=== PATIENT | male | born 1965 | race Caucasian/White ===

== ENCOUNTER → 2017-12-12 | Outpatient (CLI) | payer OTHER ==
[~2017-12-12] MED LIST: AMITRIPTYLINE; DICLOFENAC SODI75 MG PO; FLEXERIL PO; MEDROLDOSEPACK PO; NEURONTIN 300M300 M2 PO
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
== END ==
LOC: M.PC 02:06
DX: M47.22 Other spondylosis with radiculopathy, cervical region (principal); M50.123 Cervical disc disorder at C6-C7 level with radiculopathy; M25.512 Pain in left shoulder

== ENCOUNTER → 2018-01-02 | Outpatient (CLI) | payer OTHER ==
--- NOTE | 2018-01-31 13:42 | PAINCON ---
[address] [address] PAIN MANAGEMENT CONSULTATION Name: JANA CORNELL Room: [facility] EMA Mosher#: [id number] Admission: 01/02/18 Attend Phys: Ryan Ding MD Discharge: Date of : 63 Report #: [id number] THIS REPORT FOR: //name// CC: Ryan Hirsch DATE OF SERVICE: 01/02/2018 FOLLOWUP COMPLAINT: Pain in the neck and shoulder has returned. FOLLOWUP HISTORY: The patient is a 52-year-old gentleman who has been seen in the Pain Clinic because of cervical radiculopathy. He has been experiencing pain in his neck with pain radiating down into his left arm. He states that he has had some trauma to his neck over his lifetime. He has fallen on his head a number of times when he was younger. Overall, he is experiencing some pain and discomfort, which radiating down into his arm and to his right shoulder and into his hand. He notes some pain in the left shoulder and numbness down into his ring and index finger. He has not had surgery on his neck in the past. He does feel that there are some arthritic changes. He complains about a grinding sensation when he rotates his head back and forth. He has returned to the Pain Clinic for a cervical epidural steroid injection to improve the pain and discomfort, which he is experiencing. Continues to have a perception that his arm is going to sleep, that involves the left side. He continues to have cramping and pulling. He rates his pain today as a 3/10. He still finds that gabapentin and amitriptyline are helpful. ALLERGIES: No known drug allergies. CURRENT MEDICATIONS: Gabapentin 300 mg 1 p.o. t.i.d. for greater than 5 years, diclofenac 2 tablets daily for greater than 5 years, Elavil dose of which he cannot recall, he has taken this for about 3 years PAIN CLINIC ASSESSMENT: 1. 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 2. Height 6 feet, weight 185 pounds, BMI is 24. 3. Vital Signs: Blood pressure 132/74, heart rate is 58, respiratory rate is 16, room air saturation 97%, temperature 98.8. 4. Pain intensity 3-10. 5. Fall risk. The patient has not fallen in the last 3 months. 6. Blood thinner. The patient is not on a blood thinner. 7. History of hypertension. The patient is not being treated for hypertension. 8. Opioid therapy greater than 6 weeks. The patient is not on an opioid therapy. 9. Risk assessment tool. 10. Functional assessment tool. 11. Recreational drug use. The [place] [address] PAIN MANAGEMENT CONSULTATION Name: JANA CORNELL Room: [facility]#: [id number] Admission: 01/02/18 Attend Phys: Ryan Ding MD Discharge: Date of : 63 Report #: [id number] 12. Tobacco: The patient smokes one-half pack of cigarettes per day, has smoked for 30 years. 13. Alcohol. The patient drinks an alcoholic beverage 2-3 times per week. PHYSICAL EXAMINATION: GENERAL: The patient is a well-developed, well-nourished white male. He appears his stated age. He is alert and oriented x 3. Speech is fluent. HEENT: Normocephalic, atraumatic. Extraocular eye muscles intact. Mucous membranes are moist. Hearing is within normal limits. HEART: S1, S2 without murmur. LUNGS: Clear to auscultation without rhonchi or rales. ABDOMEN: Nontender. MUSCULOSKELETAL: Without significant scoliosis, kyphosis or lordosis. Upper extremity muscle strength is judged to be 5/5 for the major muscle groups of the upper extremity. Deep tendon reflexes are +1 for the biceps bilaterally. Absent triceps and brachioradialis. Decreased sensation to pinprick and light touch in the area of the left arm involving the ring and little finger. The patient has pain and discomfort radiating down to the left and right scapular areas. Some numbness and tingling in the left and feels as though his hand is going to sleep. Lower extremity muscle strength 5/5 for the major muscle groups. The patient has a wnfym-hrr-cxud amputation on his left side. He has a prosthetic device in place. He has the perception of phantom pain in the lower extremity. IMPRESSION: Cervical radiculopathy involving the right shoulder, right scapular area, left shoulder, left scapular area with pain radiating down into the left arm involving the left hand, ring and little finger with sensory changes. RECOMMENDATIONS: We discussed treatment options with the patient. Risks and benefits of a cervical epidural steroid injection were discussed. They include but are not limited to infection, increased muscle soreness, headache, worsening of pain, spinal headache, paralysis. The patient elects to proceed. PROCEDURE NOTE: The patient was placed in the prone position. He was then positioned correctly on the examination table. Fluoroscopy while the patient was in the prone position was used to identify the C7/T1 interspace. This area had been sterilely prepped with Betadine and infiltrated with 0.25% bupivacaine. A 17-gauge Tuohy with loss of resistance technique was used to gain access to the epidural space. There was no CSF, heme or paresthesia. Total of 120 mg triamcinolone was injected. The patient tolerated the procedure well. There were no complications. His pain decreased to zero at the time of discharge. A Band-Aid was placed in the area of the puncture site. There was no bleeding. The patient felt that the Medrol Dosepak, which was provided [place] [address] PAIN MANAGEMENT CONSULTATION Name: JANA CORNELL Room: [facility]#: [id number] Admission: 01/02/18 Attend Phys: Ryan Ding MD Discharge: Date of : 63 Report #: [id number] visit did help with the perception of phantom pain in his leg. He will follow up in the future as needed. <ELECTRONICALLY SIGNED> By: Ryan Ding MD 01/31/18 1342 1353 0408N. Mahad Ding MD /nt
== END | disposition home or self-care (01) ==
LOC: M.PC 02:18
DX: M54.12 Radiculopathy, cervical region (principal); G89.29 Other chronic pain; F17.210 Nicotine dependence, cigarettes, uncomplicated

== ENCOUNTER → 2018-01-30 | Outpatient (CLI) | payer OTHER ==
--- NOTE | 2018-01-31 14:14 | PAINCON ---
[address] [address] PAIN MANAGEMENT CONSULTATION Name: JANA CORNELL Room: [facility] EMA Mosher#: [id number] Admission: 01/30/18 Attend Phys: Ryan Ding MD Discharge: Date of : 63 Report #: [id number] THIS REPORT FOR: //name// CC: Ryan Hirsch DATE OF SERVICE: 01/30/2018 FOLLOWUP COMPLAINT: Pain improved after the last injection, but "I am still having some numbness and tingling down into my fingers. If I hold my hand up I note continued weakness in my right hand." FOLLOWUP HISTORY: The patient is a 52-year-old gentleman who has been seen in the pain clinic because of cervical radiculopathy. He underwent a cervical epidural steroid injection at the last visit. He has noted some pain and discomfort, which has improved. Still has pain and numbness in his hands. He has stopped taking all of his medications over the past 2 weeks. He would like to know what his baseline level of comfort is. Rates his pain as a 2/10. Overall, the most problematic thing is that of weakness and numbness involving both hands down into his fingers. The patient states that if he drinks a glass of water. He tilts his head back with the glass of water. His hands start to get weak and he almost loses control of glass. He has not had surgery on his neck. Did note improvement after the epidural steroid injection at the last dose. He has had no untoward side effects from the medications. He has stopped taking amitriptyline. It was felt that he had some difficulty waking and being clear minded the following day. He has not taken the gabapentin, Voltaren or Neurontin. Continues to have a perception of his arm is going to sleep. It involves the left side. Does continue to have some cramping and pulling sensation. Rates his pain as a 2 today, down from 3 at the last visit. ALLERGIES: No known drug allergies. CURRENT MEDICATIONS: The patient has not taken his medication for the last 2 weeks, but has script for gabapentin 300 mg one p.o. t.i.d., diclofenac 2 tablets 75 mg daily, Elavil, stopped secondary to difficulty with being awake the next day. PAIN CLINIC ASSESSMENT: 1. 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 Height 6 feet, weight 176 pounds, BMI is 28.3. 2. Vital signs: Blood pressure 131/62, heart rate 49, respiratory rate 16, room air saturation is 99%, temperature 98.1. 3. Pain intensity 210. 4. Fall risk. The patient has not fallen in the last 3 months -- he does have a prosthetic left leg. 5. Blood thinner. The patient is on [place] [address] PAIN MANAGEMENT CONSULTATION Name: JANA CORNELL Room: [facility]#: [id number] Admission: 01/30/18 Attend Phys: Ryan Ding MD Discharge: Date of : 63 Report #: [id number] 6. History of hypertension. The patient is not being treated for hypertension. 7. Opioid therapy greater than 6-week. The patient is not on opioid therapy. 8. Risk assessment tool, low for opioid use. 9. Functional assessment tool. 10. Recreational drug use. The patient denies use of recreational drugs. 11. Tobacco. The patient smokes one-half pack of cigarettes per day, has smoked for 30 years. 12. Alcohol. The patient drinks an alcoholic beverage 2-3 times per week. PHYSICAL EXAMINATION: GENERAL: The patient is a well-developed, well-nourished white male. He appears his stated age. He is alert and oriented x 3. Speech is fluent. HEAD, EYES, EARS, NOSE, AND THROAT: Normocephalic, atraumatic. Extraocular eye muscles intact. Mucous membranes are moist. Hearing is within normal limits. HEART: S1, S2, regular, without murmurs. LUNGS: Clear to auscultation without rhonchi or rales. ABDOMEN: Nontender. MUSCULOSKELETAL: Without significant scoliosis, kyphosis or lordosis. Upper extremity muscle strength is judged to be 5/5 for the major muscle groups. Deep tendon reflexes +1 for the biceps, absent brachioradialis, decreased sensation to pinprick and light touch in the area of the left arm involving his ring and little finger. The patient notes some tingling and discomfort radiating down into his right arm and hand as well. Feels as though his hand is going to sleep on the left side. Lower extremity muscle strength 5/5 for the major muscle groups. The patient has a [id number]-ycg-[id number] amputation on the left side. States that he is continue to monitor this. Given that the weather is anika hot with a hope that he does not develop a rash or infection in the stump area. He continues to wear his prosthetic device. Has some perception of phantom pain in the lower extremity, which has improved since use of the Medrol Dosepak. IMPRESSION: Cervical radiculopathy involving the right shoulder, right scapular area, left shoulder, left scapular area with pain radiating down into his left hand with numbness and tingling in his left ring and little finger with sensory changes. RECOMMENDATIONS: We discussed treatment options with the patient. He has gleaned benefits from the epidural steroid injection. He has returned today and would like to proceed with another epidural steroid injection in the future after his insurance company provides acknowledgement. The patient is showing improvement. Continues to have sensory changes in the left and right upper extremity. I think that an additional cervical epidural steroid injection would be beneficial. The patient will return to the pain clinic at which time he will then undergo another [place] [address] PAIN MANAGEMENT CONSULTATION Name: JANA CORNELL Room: [facility]#: [id number] Admission: 01/30/18 Attend Phys: Ryan Ding MD Discharge: Date of : 63 Report #: [id number] We would like to thank you for letting us to participate in his care. We hope he continues to improve. <ELECTRONICALLY SIGNED> By: Ryan Ding MD 01/31/18 1414 1341 1512N. Mahad Ding MD /[facility]
== END ==
LOC: M.PC 00:36
DX: M54.12 Radiculopathy, cervical region (principal); M25.511 Pain in right shoulder; M25.512 Pain in left shoulder; R20.2 Paresthesia of skin; R20.0 Anesthesia of skin

== ENCOUNTER → 2018-02-06 | Outpatient (CLI) | payer OTHER ==
--- NOTE | 2018-02-15 15:18 | PAINCON ---
[address] [address] PAIN MANAGEMENT CONSULTATION Name: JANA CORNELL Room: [facility] EMA Mosher#: [id number] Admission: 02/06/18 Attend Phys: Ryan Ding MD Discharge: Date of : 63 Report #: [id number] THIS REPORT FOR: //name// CC: Ryan Hirsch DATE OF SERVICE: 02/06/2018 FOLLOWUP COMPLAINT: Here for an cervical epidural steroid injection. FOLLOWUP HISTORY: The patient is a 52-year-old gentleman who has been seen in the Pain Clinic because of cervical radiculopathy. He has undergone epidural steroid injections and gleaned benefits from these. He has some pain and discomfort in his neck with radiation down into his shoulder. He has had some problems with this for years. He underwent an epidural steroid injection in the past. Gleaned greater than 50% improvement, but he continues to have some numbness down into his arm and left hand. Certain positions can exacerbate his discomfort. He rates his pain as a 2-3 on most occasions. He is not taking any medications at this juncture. He feels that another injection would be beneficial and would like to proceed. He has had no complication from the last treatment. He was taking gabapentin and diclofenac, but he elected to stop these medications to see whether or not they provide any efficacy. ALLERGIES: No known drug allergies. CURRENT MEDICATIONS/MEDICATIONS USED, BUT DISCONTINUED: Gabapentin 300 mg 1 p.o. t.i.d., diclofenac 2 tablets 75 mg daily, and Elavil. The patient stopped using this medication secondary it caused him some difficulty in waking the following day. PAIN CLINIC ASSESSMENT: 1. 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 2. Height 6 feet, weight 178 pounds, BMI 24. 3. VITAL SIGNS: Blood pressure 125/82, heart rate 51, respiratory rate 16, room air saturation 97%, temperature 98.2. 4. Pain intensity 2-10/28. 5. Fall risk. The patient has not fallen in the last 3 months. 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 6. Blood thinner. The patient is not on a blood thinning medication. 7. History of hypertension. The patient is not being treated for hypertension. 8. Opioid therapy greater than 6 weeks. The patient is not on opioid therapy regimen. 9. Risk assessment tool, low for opioid use. 10. Functional assessment tool. 11. Recreational drug use. The patient denies use of recreational drugs. 12. Tobacco: The patient smokes 1/2 pack of cigarettes per day, [place] [address] PAIN MANAGEMENT CONSULTATION Name: JANA CORNELL Room: [facility]#: [id number] Admission: 02/06/18 Attend Phys: Ryan Ding MD Discharge: Date of : 63 Report #: [id number] 29 years. 13. Alcohol. The patient drinks an alcoholic beverage 2-3 times per week. PHYSICAL EXAMINATION: GENERAL: The patient is a well-developed white male. He appears his stated age. He is alert and oriented x 3. Speech is fluent. HEENT: Normocephalic, atraumatic. Extraocular eye muscles intact. Sclerae nonicteric. Hearing within normal limits. NECK: Without adenopathy or JVD. No bruits heard. CARDIOVASCULAR: S1, S2 regular, without any murmurs. LUNGS: Clear to auscultation without rhonchi or rales. ABDOMEN: Nontender. MUSCULOSKELETAL: Without significant scoliosis, kyphosis or lordosis. Upper extremity muscle strength is judged to be 5/5 for the major muscle groups. The patient notes some worsening of pain and discomfort while lying prone on the bed. It makes it difficult for him to keep his arms in position because of the significant worsening of pain in that position. He notes some decreased sensation to pinprick in his ring and little finger. Note some tingling and discomfort in the right arm as well. Muscle strength in the lower extremity judged to be 5/5 for the major muscle groups. 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 IMPRESSION: Cervical radiculopathy, improved by 50% after last cervical epidural steroid injection. RECOMMENDATIONS: We discussed treatment options with the patient. Risks and benefits of an cervical epidural steroid injection were again reviewed. They include but are not limited to infection, increased muscle soreness, headache, bleeding, worsening of pain, no improvement in pain, spinal headache. The patient elects to proceed. PROCEDURE NOTE: The patient was taken to the examination room. He was assisted in getting on the table. His back was sterilely prepped with a Betadine solution and allowed to dry. Fluoroscopy using anterior, posterior as well as lateral imaging were used to identify the appropriate site. His neck was sterilely prepped with a Betadine solution, which was allowed to dry. Fluoroscopy using anterior, posterior imaging at the C7-T1 interspace was identified. A midline approach was used. A 0.25% bupivacaine was infiltrated into this area. A 17-gauge Tuohy with loss of resistance technique was used to gain access to the epidural space. There was a total of 120 mg triamcinolone was injected. The patient tolerated the procedure well. There was no bleeding. He was taken to the recovery room. A Band-Aid had been placed. He remained for an appropriate amount of time. He will follow up in the future as needed. [facility] [address] [place] [address] PAIN MANAGEMENT CONSULTATION Name: JANA CORNELL Room: [facility]#: [id number] Admission: 02/06/18 Attend Phys: Ryan Ding MD Discharge: Date of : 63 Report #: [id number] We would like to thank you for letting us participate in his care. Hope he continues to improve. <ELECTRONICALLY SIGNED> By: Ryan Ding MD 02/15/18 1518 [id number] [id number]. Mahad Ding MD /nt
== END | disposition home or self-care (01) ==
LOC: M.PC 02:48
DX: M54.12 Radiculopathy, cervical region (principal); G89.29 Other chronic pain; F17.210 Nicotine dependence, cigarettes, uncomplicated; Z98.890 Other specified postprocedural states